=== PATIENT | female | born 1950 | race Caucasian/White ===

== ENCOUNTER 2025-07-04 11:11 | Emergency (ER) | payer MEDICARE, OTHER | END 2025-07-04 13:28 | disposition home or self-care (01) | LOC: ERS 11:11 | DX: S60.221A Contusion of right hand, initial encounter (principal); S20.219A Contusion of unspecified front wall of thorax, initial encounter; I10 Essential (primary) hypertension; W01.0XXA Fall on same level from slipping, tripping and stumbling without subsequent striking against object, initial encounter | CPT/HCPCS: 71045 ==